=== PATIENT | male | born 2000 | race Hispanic/Latino ===

== ENCOUNTER 2019-10-17 18:08 | Emergency (ER) | payer OTHER ==
[~2019-10-17] VITALS: Ht 175.3 cm; Wt 78.3 kg
--- NOTE | 2019-10-17 19:52 | REP ---
RIGHT FIFTH DIGIT: Four views of the right fifth digit demonstrate no evidence of acute fracture, dislocation or intrinsic bone disease. Unreviewed
[2019-10-17 22:06] VITALS: BP 139/85
== END 2019-10-17 22:08 | disposition home or self-care (01) ==
LOC: M ED 18:08
DX: S67.196A Crushing injury of right little finger, initial encounter (principal); W23.1XXA Caught, crushed, jammed, or pinched between stationary objects, initial encounter; Y92.9 Unspecified place or not applicable